=== PATIENT | female | born 1960 | race Hispanic/Latino ===

== ENCOUNTER → 2018-02-08 | Outpatient (CLI) | payer OTHER | END | disposition home or self-care (01) | LOC: RAH 13:52 | PROVIDERS: ATTEND Internal Medicine Cardiovascular Disease | DX: Z13.6 Encounter for screening for cardiovascular disorders (principal) | CPT/HCPCS: 75571 ==

== ENCOUNTER → 2018-07-26 | Outpatient (CLI) | payer OTHER | END | disposition home or self-care (01) | LOC: OIH 13:52 | PROVIDERS: ATTEND Internal Medicine | DX: M17.12 Unilateral primary osteoarthritis, left knee (principal); M47.816 Spondylosis without myelopathy or radiculopathy, lumbar region; M85.88 Other specified disorders of bone density and structure, other site | CPT/HCPCS: 72100; 73560 ==

== ENCOUNTER → 2019-05-04 | Outpatient (CLI) | payer OTHER | END | disposition home or self-care (01) | LOC: OIH 13:05 | PROVIDERS: ATTEND Internal Medicine | DX: S13.9XXA Sprain of joints and ligaments of unspecified parts of neck, initial encounter (principal); X58.XXXA Exposure to other specified factors, initial encounter; Y93.89 Activity, other specified; Y92.89 Other specified places as the place of occurrence of the external cause; Y99.8 Other external cause status | CPT/HCPCS: 72040; 73030 ==

== ENCOUNTER → 2019-10-30 | Outpatient (CLI) | payer OTHER | END | disposition home or self-care (01) | LOC: OIH 10:03 | PROVIDERS: ATTEND Internal Medicine | DX: M25.511 Pain in right shoulder (principal) | CPT/HCPCS: 73030 ==

== ENCOUNTER → 2020-05-13 | Outpatient (CLI) | payer OTHER | END | disposition home or self-care (01) | LOC: OIH 09:58 | PROVIDERS: ATTEND Internal Medicine | DX: M25.542 Pain in joints of left hand (principal) | CPT/HCPCS: 73130 ==

== ENCOUNTER 2021-12-27 14:18 | Emergency (ER) | payer OTHER ==
[~2021-12-27] VITALS: Ht 157.5 cm; Wt 72.6 kg
[2021-12-27 15:54] VITALS: BP 148/82
[2021-12-27 15:57] LABS: BASOPHILS % (AUTO) 0.4 % (0.0-5.0); EOSINOPHILS % (AUTO) 5.5 % (0.0-8.0); LYMPHOCYTES % (AUTO) 26.3 % (21.0-51.0); MEAN CORPUSCULAR HEMOGLOBIN 28.7 pg (27.0-33.0); MEAN CORPUSCULAR HGB CONC 33.6 g/dL (32.0-36.0); MEAN CORPUSCULAR VOLUME 85.5 fL (79-99); MONOCYTES % (AUTO) 8.1 % (3.0-13.0); NEUTROPHILS % (AUTO) 59.4 % (40.0-77.0); PLATELET COUNT (AUTO) 341 K/uL (130-400); RED BLOOD CELL COUNT(AUTO) 4.56 MIL/uL (4.00-5.50); RED CELL DISTRIBUTION WIDTH 12.9 % (11.0-15.5)
[2021-12-27 16:04] LABS: APPEARANCE,URINE CLEAR (CLEAR); BILIRUBIN,URINE NEGATIVE (NEGATIVE); COLOR,URINE LIGHT-YELLOW (YELLOW); GLUCOSE, URINE (UA) NEGATIVE (NEGATIVE); KETONES,URINE NEGATIVE (NEGATIVE); LEUKOCYTE ESTERASE ,URINE 75 Leu/uL (NEGATIVE); NITRATE,URINE NEGATIVE (NEGATIVE); OCCULT BLOOD,URINE NEGATIVE (NEGATIVE); PH,URINE 6.5 (5.0-8.0); PROTEIN,URINE NEGATIVE (NEGATIVE); UROBILINOGEN,URINE 0.2 mg/dL (0.2-1.0)
[2021-12-27 16:07] LABS: CREATININE 0.7 mg/dL (0.5-1.5); POTASSIUM 3.9 mmol/L (3.5-5.1)
[2021-12-27 16:12] LABS: MUCUS,URINE RARE LPF (None Seen); SQUAMOUS EPITHELIAL CELL,UR RARE /HPF (0-2)
[2021-12-27 16:19] LABS: ALBUMIN 3.5 g/dL (3.5-5.0); TOTAL PROTEIN, SERUM 7.5 g/dL (6.0-8.3)
[2021-12-27] MEDS ORDERED: MECLIZINE HCL 25 MG TABLET PO ONE (17:30)
[2021-12-27] MEDS ORDERED: CEFTRIAXONE 1G VIAL IVP ONE (17:30)
[2021-12-27] MEDS ORDERED: MECL-226 PO (18:22)
[2021-12-27] MEDS ORDERED: MACR100 PO (18:22)
== END 2021-12-27 18:32 | disposition home or self-care (01) ==
LOC: EDH 14:18
DX: J30.9 Allergic rhinitis, unspecified (principal); R42 Dizziness and giddiness; N39.0 Urinary tract infection, site not specified; F41.9 Anxiety disorder, unspecified; F32.A Depression, unspecified; E78.00 Pure hypercholesterolemia, unspecified; G47.00 Insomnia, unspecified; Z79.899 Other long term (current) drug therapy; Z88.6 Allergy status to analgesic agent; Z98.890 Other specified postprocedural states
CPT/HCPCS: 99284; 96374; 82550; 83874; 84484; 80053; 85025; 87088; 81001; 36415; 93005; J0696

== ENCOUNTER → 2022-05-26 | Outpatient (CLI) | payer OTHER ==
[~2022-05-26] MED LIST: MACR100 PO; MECL-226 PO
== END | disposition home or self-care (01) ==
LOC: RAH 14:11
PROVIDERS: ATTEND Internal Medicine
DX: S29.012A Strain of muscle and tendon of back wall of thorax, initial encounter (principal); S16.1XXA Strain of muscle, fascia and tendon at neck level, initial encounter; X58.XXXA Exposure to other specified factors, initial encounter; Y93.89 Activity, other specified; Y92.89 Other specified places as the place of occurrence of the external cause; Y99.8 Other external cause status
CPT/HCPCS: 72050; 72070

== ENCOUNTER 2023-01-18 10:45 | Emergency (ER) | payer OTHER ==
[~2023-01-18] VITALS: Ht 157.5 cm; Wt 67.1 kg
[2023-01-18] MEDS ORDERED: BISACODYL 10 MG SUPP.RECT RC ONE ×2 (12:04→12:30)
[2023-01-18 13:10] LABS: BASOPHILS # (AUTO) 0.04 K/uL (0.00-0.20); BASOPHILS % (AUTO) 0.4 % (0.0-5.0); EOSINOPHILS # (AUTO) 0.02 K/uL (0.00-0.70); EOSINOPHILS % (AUTO) 0.2 % (0.0-8.0); HEMATOCRIT 42.5 % (36-48); IMMATURE GRANULOCYTE ABSOLUTE 0.04 K/uL (0-1); LYMPHOCYTES % (AUTO) 18.2 % (21.0-51.0); MEAN CORPUSCULAR HEMOGLOBIN 28.6 pg (27.0-33.0); MEAN CORPUSCULAR HGB CONC 33.9 g/dL (32.0-36.0); MEAN CORPUSCULAR VOLUME 84.5 fL (79-99); MONOCYTES # (AUTO) 0.5 K/uL (0.1-1.0); MONOCYTES % (AUTO) 4.4 % (3.0-13.0); NEUTROPHILS # (AUTO) 8.3 K/uL (1.8-7.7); NEUTROPHILS % (AUTO) 76.4 % (40.0-77.0); PLATELET COUNT (AUTO) 397 K/uL (130-400); RED BLOOD CELL COUNT(AUTO) 5.03 MIL/uL (4.00-5.50); RED CELL DISTRIBUTION WIDTH 12.7 % (11.0-15.5); WHITE BLOOD COUNT (AUTO) 10.8 K/uL (4.8-10.8)
[2023-01-18 13:19] LABS: CREATININE 0.7 mg/dL (0.5-1.5); POTASSIUM 3.9 mmol/L (3.5-5.1)
[2023-01-18 13:24] LABS: ALBUMIN 3.8 g/dL (3.5-5.0); BILIRUBIN,TOTAL 0.5 mg/dL (0.2-1.0); TOTAL PROTEIN, SERUM 8.4 g/dL (6.0-8.3)
[2023-01-18 13:41] VITALS: BP 118/76; PULSE 88; RESP 14; O2SAT 100
[2023-01-18] MEDS ORDERED: SENN1TAB72 PO (14:02)
[2023-01-18] MEDS ORDERED: POLY454P5 MC (14:02)
== END 2023-01-18 14:24 | disposition home or self-care (01) ==
LOC: EDH 10:45
DX: K59.04 Chronic idiopathic constipation (principal); F41.9 Anxiety disorder, unspecified; F32.A Depression, unspecified; E78.00 Pure hypercholesterolemia, unspecified; Z88.5 Allergy status to narcotic agent
CPT/HCPCS: 36415; 74018; 80053; 84484; 85025; 86850; 86900; 86901

== ENCOUNTER 2023-01-27 10:58 | Emergency (ER) | payer OTHER ==
[~2023-01-27] VITALS: Ht 157.5 cm; Wt 66.7 kg
[~2023-01-27 10:58] MED LIST changes: +POLY454P5 MC; +SENN1TAB72 PO
[2023-01-27] MEDS ORDERED: ACETAMINOPHEN WITH CODEINE 1 TAB TAB PO ONE (12:00)
[2023-01-27] MEDS ORDERED: IBUP-2070 PO (13:04)
[2023-01-27 13:22] VITALS: BP 133/78; PULSE 78; RESP 18; O2SAT 98
== END 2023-01-27 14:00 | disposition home or self-care (01) ==
LOC: EDH 10:58
DX: S20.211A Contusion of right front wall of thorax, initial encounter (principal); E78.00 Pure hypercholesterolemia, unspecified; F41.9 Anxiety disorder, unspecified; F32.A Depression, unspecified; Z90.49 Acquired absence of other specified parts of digestive tract; Z88.5 Allergy status to narcotic agent; X58.XXXA Exposure to other specified factors, initial encounter; Y93.89 Activity, other specified; Y92.89 Other specified places as the place of occurrence of the external cause; Y99.8 Other external cause status
CPT/HCPCS: 71101

== ENCOUNTER 2023-11-29 15:42 | Emergency (ER) | payer OTHER ==
[~2023-11-29] VITALS: Ht 162.6 cm; Wt 63.5 kg
[~2023-11-29 15:42] MED LIST changes: +IBUP-2070 PO; +SENN-7 PO; -SENN1TAB72 PO
[2023-11-29 16:15] LABS: BASOPHILS # (AUTO) 0.02 K/uL (0.00-0.20); BASOPHILS % (AUTO) 0.3 % (0.0-5.0); EOSINOPHILS # (AUTO) 0.11 K/uL (0.00-0.70); EOSINOPHILS % (AUTO) 1.6 % (0.0-8.0); HEMATOCRIT 39.6 % (36-48); IMMATURE GRANULOCYTE ABSOLUTE 0.01 K/uL (0-1); LYMPHOCYTES # (AUTO) 2.5 K/uL (1.0-4.8); LYMPHOCYTES % (AUTO) 35.8 % (21.0-51.0); MEAN CORPUSCULAR HEMOGLOBIN 28.9 pg (27.0-33.0); MEAN CORPUSCULAR HGB CONC 33.6 g/dL (32.0-36.0); MEAN CORPUSCULAR VOLUME 86.1 fL (79-99); MONOCYTES # (AUTO) 0.5 K/uL (0.1-1.0); MONOCYTES % (AUTO) 7.6 % (3.0-13.0); NEUTROPHILS # (AUTO) 3.8 K/uL (1.8-7.7); NEUTROPHILS % (AUTO) 54.6 % (40.0-77.0); PLATELET COUNT (AUTO) 360 K/uL (130-400); RED CELL DISTRIBUTION WIDTH 12.8 % (11.0-15.5)
[2023-11-29 16:23] LABS: CREATININE 0.8 mg/dL (0.5-1.0); POTASSIUM 3.7 mmol/L (3.5-5.1)
[2023-11-29 16:43] LABS: B-TYPE NATRIURETIC PEPTIDE 24 pg/mL (0-100)
[2023-11-29] MEDS: acetaMINOPHEN 500 MG TABLET PO ONE (18:08)
[2023-11-29 19:14] VITALS: BP 142/81; PULSE 84; RESP 18; TEMP 98.1; O2SAT 98
== END 2023-11-29 19:15 | disposition home or self-care (01) ==
LOC: EDH 15:42
DX: R07.89 Other chest pain (principal); E78.00 Pure hypercholesterolemia, unspecified; I10 Essential (primary) hypertension; F41.9 Anxiety disorder, unspecified; Z88.5 Allergy status to narcotic agent; Z90.710 Acquired absence of both cervix and uterus
CPT/HCPCS: 36415; 71045; 80048; 82550; 83880; 84484; 85025; 93005

== ENCOUNTER 2024-03-17 18:02 | Emergency (ER) | payer OTHER ==
[~2024-03-17] VITALS: Ht 157.5 cm; Wt 65.8 kg
[2024-03-17 18:12] VITALS: TEMP 98.1
--- NOTE | 2024-03-17 18:17 | ERN ---
General Chief Complaint: Chest Pain Stated Complaint: CP Time Seen by MD: 18:06 Time Seen by Midlevel: 18:06 Source: patient History of Present Illness Initial Comments Patient is a 63-year-old female with a past medical history of anxiety, depression, and insomnia on Ativan presenting to the emergency department with chest pain and shortness of Breath that has been ongoing for the last couple of days but worsened today. Denies any other symptoms at this time. She does report feeling slightly better after taking her Ativan but still decided to report to the ER for further evaluation. Allergies: Coded Allergies: morphine (Unverified Allergy, Unknown, 12/27/21) Home Meds Active Scripts Ibuprofen (Ibuprofen) 600 Mg Tablet, 600 MG PO q8 hoursPRN PRN for PAIN, #12 TAB 0 Refills Prov:LACEY QUESADA NP 01/27/23 Polyethylene Glycol 1000 (Polyethylene Glycol) 500 Gm Powder, 500 GM MC DAILY, #15 APPL Prov:CECE HEWITT MD 01/18/23 Sennosides/Docusate Sodium (Senna-Docusate Sodium Tablet) 8.6 Mg-50 Mg Tablet, 1 EACH PO DAILY, #30 TAB Prov:CECE HEWITT MD 01/18/23 Nitrofurantoin/Nitrofuran Mac (Macrobid) 100 Mg Cap, 1 CAP PO BID for uti for 7 Days, #14 CAP 0 Refills Prov:JULIUS TRIPP 12/27/21 Meclizine HCl (Meclizine HCl) 12.5 Mg Tablet, 12.5 MG PO QID for DIZZINESS for 30 Days, #30 TAB Prov:JULIUS TRIPP 12/27/21 Past Medical History Past Medical History: Anxiety, Other Medical History Other: INSOMNIA Past Surgical History: Hysterectomy Social History Social History: Negative Female( History) History: Not Applicable ROS Dictation CONSTITUTIONAL: Negative except for HPI HEAD/FACE: Negative except for HPI EENT: Negative except for HPI RESPIRATORY: Negative except for HPI GASTROINTESTINAL/ABDOMINAL: Negative except for HPI GENITOURINARY: Negative except for HPI MUSCULOSKELETAL: Negative except for HPI INTEGUMENTARY: Negative except for HPI NEUROLOGICAL/PSYCH: Negative except for HPI HEMATOLOGIC/LYMPHATIC: Negative except for HPI All Systems Negative, Except as noted above. 13 point review of systems assessed and all negative except for above. Physical Exam Physical Exam Dictation Vital Signs reviewed General Appearance: Alert, oriented x 3, no acute distress, well developed, nourished. Head and Face: non-traumatic. Eyes: PERRL, pink conjunctivas, eyelid no trauma, anterior chamber with arcus senilis. Ears: Pinnas intact and no signs of trauma or erythema ear canals clear and no discharge TM no erythema Nose: No discharge, no bleeding. Oropharynx: Mouth normal, tongue pink, pharynx clear,no erythema, tonsils no exudates, no abscesses noted, mucous membrane moist Neck: Supple, non-tender, no thyromegaly, no masses, no JVD, no bruits Breast:Deferred Chest:No tenderness, no crepitus, no paradoxical movement, no retractions Lungs:Clear, well-ventilated, symmetric, no rales, no wheezing, no rhonchi, no stridor, good breath sounds bilaterally Heart: Regular rate, regular rhythm, no murmur, no gallops Vascular: no peripheral edema, Abdomen: Soft, positive bowel sounds, nondistended, no guarding, nontender, no rebound, no masses no hepatomegaly, no splenomegaly, no Brooks's sign, no hernias. Rectal: Deferred Genital: Deferred Neurological: Normal speech, motor function intact, sensory function intact Musculoskeletal: Neck nontender, full range of motion, back nontender, full range of motion, Extremities: nontender, full range of motion Skin: Color pink, dry, no turgor, no rash, no lacerations, no abrasions, no contusions. Lymphatic: Deferred Results Laboratory and Microbiology Lab and Micro Result Laboratory Tests Test 03/17/24 18:19 White Blood Count 8.8 K/uL (4.8-10.8) Red Blood Count 4.46 MIL/uL (4.00-5.50) Hemoglobin 13.1 g/dL (12.0-16.0) Hematocrit 38.7 % (36-48) Mean Corpuscular Volume 86.8 fL (79-99) Mean Corpuscular Hemoglobin 29.4 pg (27.0-33.0) Mean Corpuscular Hemoglobin Concent 33.9 g/dL (32.0-36.0) Red Cell Distribution Width 13.3 % (11.0-15.5) Platelet Count 348 K/uL (130-400) Mean Platelet Volume 8.9 fL (7.5-10.5) Immature Granulocyte % (Auto) 0.2 % (0-1) Neutrophils (%) (Auto) 60.7 % (40.0-77.0) Lymphocytes (%) (Auto) 31.5 % (21.0-51.0) Monocytes (%) (Auto) 4.9 % (3.0-13.0) Eosinophils (%) (Auto) 2.2 % (0.0-8.0) Basophils (%) (Auto) 0.5 % (0.0-5.0) Neutrophils # (Auto) 5.3 K/uL (1.8-7.7) Lymphocytes # (Auto) 2.8 K/uL (1.0-4.8) Monocytes # (Auto) 0.4 K/uL (0.1-1.0) Eosinophils # (Auto) 0.19 K/uL (0.00-0.70) Basophils # (Auto) 0.04 K/uL (0.00-0.20) Absolute Immature Granulocyte (auto 0.02 K/uL (0-1) Nucleated Red Blood Cells 0.0 % (0.0-0.19) Sodium Level 141 mmol/L (136-145) Potassium Level 4.2 mmol/L (3.5-5.1) Chloride Level 104 mmol/L (101-111) Carbon Dioxide Level 30 mmol/L (21-32) Blood Urea Nitrogen 16 mg/dL (7-18) Creatinine 0.7 mg/dL (0.5-1.0) Glomerular Filtration Rate Calc 97 mL/min (>90) Random Glucose 154 mg/dL (70-105) H Total Calcium 8.8 mg/dL (8.5-10.1) Magnesium Level 2.00 mg/dL (1.80-2.40) Total Creatine Kinase 38 U/L (21-232) # Troponin I High Sensitivity < 4 ng/L (4-50) L B-Type Natriuretic Peptide 8 pg/mL (0-100) Labs Reviewed?: Yes EKG/XRAY/US/CT/MRI EKG Comment Date: March 17, 2024 Time: 6:10 p.m. Ventricular rate: 79 beats per minute TX interval: 163 QRS duration: 81 QT/QTc: 376/430 EKG interpretation: Normal sinus rhythm with a ventricular rate of 79 beats per minute, no bundle branch blocks, no ST elevations Reviewed by ED Attending MDM MDM: Patient is a 63-year-old female with a past medical history of anxiety, depression, and insomnia on Ativan presenting to the emergency department with chest pain and shortness of Breath that has been ongoing for the last couple of days but worsened today. Denies any other symptoms at this time. She does report feeling slightly better after taking her Ativan but still decided to report to the ER for further evaluation. On arrival patient reports feeling short of breath however initial vital signs are remarkable for a temperature of 98.1. Heart rate is 88 beats per minute. Respiratory rate is 18 breaths per minute. Blood pressure 151/82. O2 saturation is 98% on room air. Patient is in no acute respiratory distress. CBC and chemistries unremarkable. EKG shows normal sinus rhythm with a ventricular rate of 79 beats per minute. There was no bundle branch blocks or ST elevations. Cardiac enzymes are negative. Chest x-ray does not show any acute abnormality. I do believe there is a component of anxiety however the patient has an appointment scheduled with a good [facility] vendor for a full cardiac workup. Patient had Holter monitor removed several days ago and will be receiving her results later this month. The next step is an echocardiogram that will be performed by good [facility] vendor outpatient. I did offer admission for further observation and management but patient would like to go home. She states she will return to the ER if she develops any new or worsening symptoms. I believe this is appropriate at this time given her low heart score and unremarkable blood work. She was chest pain-free at this time and her repeat vital signs are unremarkable. Differential diagnosis: ACS, pneumonia, pulmonary edema, anxiety There are no social concerns with this patient. Prescription drug management Prescriptions will include: None Medical management and examination interpretation discussions were had by me with other qualified healthcare professionals as indicated for the patient's care. ED Course Orders Procedure Category Date Status Time 12 Lead Ekg Tracing- EKG 03/17/24 Complete Technical 18:11 B-Type Natriuretic LAB 03/17/24 Complete Peptide 18:11 Cbc With Differential LAB 03/17/24 Complete 18:11 Basic Metabolic Panel LAB 03/17/24 Complete 18:11 Creatine Kinase, Total LAB 03/17/24 Complete 18:11 Magnesium LAB 03/17/24 Complete 18:11 Troponin I High LAB 03/17/24 Complete Sensitivity 18:11 Urinalysis Profile LAB 03/17/24 Logged 18:11 Chest 1vw RAD 03/17/24 Resulted 18:11 Vital Signs Date Time Temp Pulse Resp B/P (MAP) Pulse Ox O2 Delivery O2 Flow Rate FiO2 03/17/24 19:53 65 13 112/68 98 Room Air* 0 21 03/17/24 18:12 98.1 88 18 151/82 98 Room Air* 0 21 03/17/24 18:07 98.1 88 18 151/82 98 Room Air 0 [facility] [address] [place] [address] IMAGING REPORT Signed PATIENT: MARISOL ANDERSON MR#: [id number] : 1960 SEX: F AGE: 63 LOCATION: [facility] ORDER 11 STATUS: REG REPORT#: [id number] SERVICE 10 REASON: sob ORDERING PHYSICIAN: CHRIS HOLLIDAY PROCEDURE: CXR1VW - CHEST 1VW CHEST 1VW CLINICAL HISTORY: sob COMPARISON: 11/29/2023 TECHNIQUE: Single view of the chest was obtained. FINDINGS: Lungs are clear. The cardiac size and mediastinum are unremarkable. The bony structures are within normal limits. IMPRESSION: No acute cardiopulmonary process identified. DICTATED BY: SANJIV BRODY DO DATE: 03/17/242015 ELECTRONICALLY SIGNED BY: SANJIV BRODY DO DATE: 03/17/24 2019 HEART Score Response (Comments) Value History: Low suspicion (0) 0 EKG: Normal 0 Age: 45-65yrs (+1) 1 Risk Factors: 1-2 risk factors (+1) 1 Initial Troponin: Normal limit (0) 0 HEART Score Risk: Low Risk for MACE (1-3) Total 2 DX & DISP Disposition: Discharge Departure Impression: Primary Impression: Non-cardiac chest pain Condition: Stable Additional Instructions: Your blood work today is unremarkable. Your cardiac enzymes are negative. Your EKG does not show any evidence of a heart attack. Your chest x-ray does not show any evidence of pneumonia or any other acute abnormalities. Please keep your appointment with [facility] vendor for outpatient evaluation. Follow up with your psychiatrist Dr. Mix for possible medication adjustment as your symptoms may be caused by the Ativan that you are taking. If you develop any new or worsening symptoms please report to the ER for further evaluation. Referrals: ORION VARGAS MD (PCP) Time of Disposition: 20:47 I have reviewed the case, and I agree with, Diagnosis and Plan I performed the substantive portion of the visit. I have reviewed and personally made and approve the management plan that is documented in the note by myself or the BRE. I acknowledge for responsibility for the patient's manag ement plan. CHRIS HOLLIDAY Mar 17, 2024 18:17
[2024-03-17 18:26] LABS: BASOPHILS # (AUTO) 0.04 K/uL (0.00-0.20); BASOPHILS % (AUTO) 0.5 % (0.0-5.0); EOSINOPHILS # (AUTO) 0.19 K/uL (0.00-0.70); EOSINOPHILS % (AUTO) 2.2 % (0.0-8.0); HEMATOCRIT 38.7 % (36-48); IMMATURE GRANULOCYTE ABSOLUTE 0.02 K/uL (0-1); LYMPHOCYTES # (AUTO) 2.8 K/uL (1.0-4.8); LYMPHOCYTES % (AUTO) 31.5 % (21.0-51.0); MEAN CORPUSCULAR HEMOGLOBIN 29.4 pg (27.0-33.0); MEAN CORPUSCULAR HGB CONC 33.9 g/dL (32.0-36.0); MEAN CORPUSCULAR VOLUME 86.8 fL (79-99); MONOCYTES # (AUTO) 0.4 K/uL (0.1-1.0); MONOCYTES % (AUTO) 4.9 % (3.0-13.0); NEUTROPHILS # (AUTO) 5.3 K/uL (1.8-7.7); NEUTROPHILS % (AUTO) 60.7 % (40.0-77.0); PLATELET COUNT (AUTO) 348 K/uL (130-400); RED BLOOD CELL COUNT(AUTO) 4.46 MIL/uL (4.00-5.50); RED CELL DISTRIBUTION WIDTH 13.3 % (11.0-15.5); WHITE BLOOD COUNT (AUTO) 8.8 K/uL (4.8-10.8)
[2024-03-17 18:33] LABS: CREATININE 0.7 mg/dL (0.5-1.0); POTASSIUM 4.2 mmol/L (3.5-5.1)
[2024-03-17 18:57] LABS: B-TYPE NATRIURETIC PEPTIDE 8 pg/mL (0-100)
--- NOTE | 2024-03-17 19:05 | EKG ---
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
--- NOTE | 2024-03-17 19:14 | NUR ---
PT CARE ASSUMED AT THIS TIME
--- NOTE | 2024-03-17 20:19 | HMCIMG ---
CHEST 1VW CLINICAL HISTORY: sob COMPARISON: 11/29/2023 TECHNIQUE: Single view of the chest was obtained. FINDINGS: Lungs are clear. The cardiac size and mediastinum are unremarkable. The bony structures are within normal limits. IMPRESSION: No acute cardiopulmonary process identified.
[2024-03-17 21:06] VITALS: BP 138/81; PULSE 64; RESP 11; O2SAT 96
== END 2024-03-17 21:19 | disposition home or self-care (01) ==
LOC: EDH 18:02
DX: R07.89 Other chest pain (principal); F41.9 Anxiety disorder, unspecified; Z88.5 Allergy status to narcotic agent; Z90.710 Acquired absence of both cervix and uterus
CPT/HCPCS: 36415; 71045; 80048; 82550; 83735; 83880; 84484; 85025; 93005; 99285

== ENCOUNTER 2024-04-07 04:45 | Emergency (ER) | payer OTHER ==
[~2024-04-07] VITALS: Ht 157.5 cm; Wt 66.2 kg
[2024-04-07 05:04] VITALS: TEMP 98
--- NOTE | 2024-04-07 05:11 | ERN ---
ED Note History of Present Illness Stated Complaint: CHEST PAIN, HTN Chief Complaint: Multiple Complaints Time Seen by MD: 04:52 Dictation: This is a 63-year-old female who presented to the emergency room with complaints of palpitations. She stated that she had a cold with chest congestion and took cough syrup [id number] before going to bed. She woke up and experienced a heaviness in the back of the head which she usually does when her blood pressure goes up. Checked her blood pressure which was in the 150 systolic and there was a 3rd number on her blood pressure machine which was 134 and she was concerned and came to the ER for further evaluation. She takes sertraline in the morning and quetiapine at night for sleep. And she also takes 3 to 4 times a week Ativa n as needed for anxiety. She took an Ativan pill prior to come into the ER. She denied any chest pain or chest discomfort of any sort during my evaluation. She does complain of dry mouth Temperature 97.8 pulse 102 respirations 20 blood pressure 155/80 with a pulse oximetry of 99% on room air Her chronic medical problems include anxiety depression and hypertension she also suffers from chronic insomnia. She had similar presentation in the past and the workup was essentially negative Allergies: Coded Allergies: morphine (Unverified Allergy, Unknown, 12/27/21) Home Meds Active Scripts Ibuprofen (Ibuprofen) 600 Mg Tablet, 600 MG PO q8 hoursPRN PRN for PAIN, #12 TAB 0 Refills Prov:LACEY QUESADA NP 01/27/23 Polyethylene Glycol 1000 (Polyethylene Glycol) 500 Gm Powder, 500 GM MC DAILY, #15 APPL Prov:CECE HEWITT MD 01/18/23 Sennosides/Docusate Sodium (Senna-Docusate Sodium Tablet) 8.6 Mg-50 Mg Tablet, 1 EACH PO DAILY, #30 TAB Prov:CECE HEWITT MD 01/18/23 Nitrofurantoin/Nitrofuran Mac (Macrobid) 100 Mg Cap, 1 CAP PO BID for uti for 7 Days, #14 CAP 0 Refills Prov:JULIUS TRIPP 12/27/21 Meclizine HCl (Meclizine HCl) 12.5 Mg Tablet, 12.5 MG PO QID for DIZZINESS for 30 Days, #30 TAB Prov:JULIUS TRIPP 10/29/22 Past Medical History Past Medical History: Anxiety, Hypertension, Other Additional Past Medical Hx: INSOMNIA Surgical History: Hysterectomy Social History: Negative History: Not Applicable RN Note Reviewed/Agreed w/PFSH: Yes Review of System Dictation Constitutional: Negative for fever,chills, and weight loss Eyes: Negative for injury, pain,redness, and discharge ENT: Negative for injury,pain or swelling Cardiovascular: Negative for chest pain, positive palpitations, Respiratory: Negative for shortness of breath, cough, and wheezing, Abdomen/GI: Negative for abdominal pain, nausea, vomiting, diarrhea, and constipation Back: Negative for injury and pain : Negative for injury, bleeding and discharge MS/Extremity: Negative for injury and deformity Skin: Negative for rash, and discoloration Neuro: Negative for headache, weakness, numbness, tingling, and seizure Psych: Negative for suicide ideation, homicidal ideation, and hallucinations Initial Vital Sign VS Vital Signs Date Time Temp Pulse Resp B/P (MAP) Pulse Ox O2 Delivery O2 Flow Rate FiO2 04/07/24 04:47 97.9 102 20 155/80 100 Room Air 04/07/24 05:04 0 21 Physical Exam Dictation General: awake, alert, NAD generally anxious Head/Face: Normocephalic, atraumatic Eyes: PERRL, EOMI, vision at baseline ENT: oral cavity clear, TMs clear, no signs of infection Neck: Trachea midline, supple, no nuchal rigidity Cardiovascular: RRR, normal S1/S2, No MRGs, no JVD Respiratory: CTAB, no respiratory distress, No rales or wheezes Abdomen: Soft, non-tender, non-distended, normal bowel sounds, no guarding or rebound. Skin: Warm, dry, normal turgor, no rash MS/Extremity: Pulses equal, no cyanosis, neurovascular intact, FROM Neuro: COAx4, GCS 15, strength 5/5, CN 2-12 intact, normal cerebellar exam, normal gait, Psych: Normal behavior, mood, and affect normal Extremities-trace edema without any palpable cords, Homans sign is negative Results (Laboratory/Radiology) Laboratory/Radiology Laboratory Tests Test 04/07/24 05:45 04/07/24 05:47 Urine Color COLORLESS (YELLOW) Urine Appearance CLEAR (CLEAR) Urine pH 5.5 (5.0-8.0) Urine Specific [place] 1.006 (1.001-1.031) Urine Protein NEGATIVE mg/dL (NEGATIVE) Urine Glucose (UA) NEGATIVE mg/dL (NEGATIVE) Urine Ketones NEGATIVE mg/dL (NEGATIVE) Urine Occult Blood NEGATIVE (NEGATIVE) Urine Nitrate NEGATIVE (NEGATIVE) Urine Bilirubin NEGATIVE mg/dL (NEGATIVE) Urine Urobilinogen 0.2 mg/dL (0.2-1.0) Urine Leukocyte Esterase 25 Kiersten/uL (NEGATIVE) H Urine RBC 0-1 /HPF (0-1) Urine WBC 0-1 /HPF (0-1) Urine Squamous Epithelial Cells RARE /HPF (0-2) Urine Bacteria None /HPF (None Seen) White Blood Count 7.2 K/uL (4.8-10.8) Red Blood Count 4.42 MIL/uL (4.00-5.50) Hemoglobin 12.8 g/dL (12.0-16.0) Hematocrit 38.3 % (36-48) Mean Corpuscular Volume 86.7 fL (79-99) Mean Corpuscular Hemoglobin 29.0 pg (27.0-33.0) Mean Corpuscular Hemoglobin Concent 33.4 g/dL (32.0-36.0) Red Cell Distribution Width 13.1 % (11.0-15.5) Platelet Count 327 K/uL (130-400) Mean Platelet Volume 9.0 fL (7.5-10.5) Immature Granulocyte % (Auto) 0.3 % (0-1) Neutrophils (%) (Auto) 65.3 % (40.0-77.0) Lymphocytes (%) (Auto) 23.3 % (21.0-51.0) Monocytes (%) (Auto) 7.5 % (3.0-13.0) Eosinophils (%) (Auto) 3.2 % (0.0-8.0) Basophils (%) (Auto) 0.4 % (0.0-5.0) Neutrophils # (Auto) 4.7 K/uL (1.8-7.7) Lymphocytes # (Auto) 1.7 K/uL (1.0-4.8) Monocytes # (Auto) 0.5 K/uL (0.1-1.0) Eosinophils # (Auto) 0.23 K/uL (0.00-0.70) Basophils # (Auto) 0.03 K/uL (0.00-0.20) Absolute Immature Granulocyte (auto 0.02 K/uL (0-1) Nucleated Red Blood Cells 0.0 % (0.0-0.19) Sodium Level 141 mmol/L (136-145) Potassium Level 3.7 mmol/L (3.5-5.1) Chloride Level 106 mmol/L (101-111) Carbon Dioxide Level 30 mmol/L (21-32) Blood Urea Nitrogen 13 mg/dL (7-18) Creatinine 0.6 mg/dL (0.5-1.0) Glomerular Filtration Rate Calc 101 mL/min (>90) Random Glucose 106 mg/dL (70-105) H Total Calcium 8.8 mg/dL (8.5-10.1) Labs Reviewed?: Yes EKG Comment: Twelve lead EKG done on 04/07/2024 at 4:59 a.m. showed a heart rate of 75, WI interval 194, QRS 86, QT/QTC is 386/432 Normal sinus rhythm with intermittent sinus arrhythmia. Overall somewhat of a low voltage and poor progression of the R-waves. Nonspecific ST-T changes but no acute ST elevations noted Interpreted by Dr. Eisenberg ED Course ED Course Orders Procedure Category Date Status Time 12 Lead Ekg Tracing- EKG 04/07/24 Complete Technical 05:04 Cbc With Differential LAB 04/07/24 Complete 05:42 Basic Metabolic Panel LAB 04/07/24 Complete 05:42 Urinalysis Profile LAB 04/07/24 Complete 05:42 Vital Signs Date Time Temp Pulse Resp B/P (MAP) Pulse Ox O2 Delivery O2 Flow Rate FiO2 04/07/24 06:33 64 14 112/65 95 Room Air* 0 21 04/07/24 05:04 98.1 95 16 153/90 97 Room Air* 0 21 04/07/24 04:47 97.9 102 20 155/80 100 Room Air We will perform diagnostic labs, and administer medications according to the patient's complaint. Once the results are available, will review and personally interpreted the labs to rule out any acute life-threatening emergency the trach require immediate intervention and treatment. I will then re-evaluate the patient after treatment and diagnostic exams have return to determine whether the patient requires any further testing, can safely be discharged home or need further admission to hospital for additional treatment and evaluation. Labs reviewed CBC is with a normal limits. Urinalysis had mild leuko esterase positivity but no WBCs noted. BNP 7 is pending 6:56 a.m. BNP 7 is completely normal I updated the patient about the labs and likely her symptoms were related to multiple medications and the cough syrup interacting. She feels a whole lot better. Discharge to home to follow up with her PCP HEART Score Response (Comments) Value History: Low suspicion (0) 0 EKG: Normal 0 Age: 45-65yrs (+1) 1 Risk Factors: 1-2 risk factors (+1) 1 Initial Troponin: Normal limit (0) 0 HEART Score Risk: Low Risk for MACE (1-3) Total 2 Medical Decision Making MDM MDM: Differential diagnosis: Palpitations likely triggered by the nasal decongestant and cough syrup, anxiety, drug interactions Rationale: Tests considered and ordered secondary to shared decision making include: Previous outside records reviewed: Old ER visits. Risk of complication and/or morbidity or mortality of patient management: None Medications-Per medication reconciliation Need for hospitalization: Patient does not meet criteria for hospitalization. Need for emergency major/minor surgery: No There are no social concerns with this patient. Prescription drug management Prescriptions will include symptomatic care Patient's prior external medical records from other ER visits were reviewed by me as indicated. Prior testing and results from previous visits were reviewed. Prior tests were taken into account with medical decision making and resource utilization, independent historian/historians were used to obtain complete medical history. I independently interpreted the test that were performed, results were reviewed by me and considered findings on radiology if ordered. Medical management and examination interpretation discussions were had by me with other qualified healthcare professionals as indicated for the patient's care. Problem List Problem List: (1) Non-cardiac chest pain (2) Severe anxiety (3) Palpitations (4) Uncontrolled hypertension DX & DISP Disposition: Discharge Departure Impression: Primary Impression: Non-cardiac chest pain Additional Impressions: Chest pain, atypical, Severe anxiety, Palpitations, Uncontrolled hypertension Condition: Stable Additional Instructions: Patient and the caregiver have been informed of all the diagnostic tests and the imaging conducted during the today's visit to the emergency room and has verbalized understanding of the results I have personally reviewed and interpreted all diagnostic exams performed here in the ER today as well as the vital signs documented by the nursing staff. The patient is now being discharged to home and should follow up with the primary care physician or the specialist as directed by the ER staff. Follow-up with primary care provider in 1 to 2 days. Take medications as directed here in the emergency room. Okay to continue home medications unless otherwise discussed during your visit in the emergency room today. Return to your nearest emergency room if symptoms worsen or if there is no improvement. Call 911 if you need immediate assistance. Take Tylenol or Motrin [id number] as needed and if no contraindications are present. Increase oral hydration. A wound culture or urine culture was ordered here in the emergency room department please follow-up with primary care provider and advise them to get repeat ports from our facility. If you had any Maximiliano wrap/splints that were applied here, please do not remove them until you see your primary care or specialty. Referrals: ORION VARGAS MD (PCP) ASHANTI EISENBERG MD Apr 07, 2024 05:11
[2024-04-07 05:55] LABS: BASOPHILS # (AUTO) 0.03 K/uL (0.00-0.20); BASOPHILS % (AUTO) 0.4 % (0.0-5.0); EOSINOPHILS # (AUTO) 0.23 K/uL (0.00-0.70); EOSINOPHILS % (AUTO) 3.2 % (0.0-8.0); HEMATOCRIT 38.3 % (36-48); IMMATURE GRANULOCYTE ABSOLUTE 0.02 K/uL (0-1); LYMPHOCYTES # (AUTO) 1.7 K/uL (1.0-4.8); LYMPHOCYTES % (AUTO) 23.3 % (21.0-51.0); MEAN CORPUSCULAR HGB CONC 33.4 g/dL (32.0-36.0); MEAN CORPUSCULAR VOLUME 86.7 fL (79-99); MONOCYTES # (AUTO) 0.5 K/uL (0.1-1.0); MONOCYTES % (AUTO) 7.5 % (3.0-13.0); NEUTROPHILS # (AUTO) 4.7 K/uL (1.8-7.7); NEUTROPHILS % (AUTO) 65.3 % (40.0-77.0); PLATELET COUNT (AUTO) 327 K/uL (130-400); RED BLOOD CELL COUNT(AUTO) 4.42 MIL/uL (4.00-5.50); RED CELL DISTRIBUTION WIDTH 13.1 % (11.0-15.5); WHITE BLOOD COUNT (AUTO) 7.2 K/uL (4.8-10.8)
[2024-04-07 05:57] LABS: APPEARANCE,URINE CLEAR (CLEAR); BILIRUBIN,URINE NEGATIVE (NEGATIVE); COLOR,URINE COLORLESS (YELLOW); GLUCOSE, URINE (UA) NEGATIVE (NEGATIVE); KETONES,URINE NEGATIVE (NEGATIVE); LEUKOCYTE ESTERASE ,URINE 25 Leu/uL (NEGATIVE); NITRATE,URINE NEGATIVE (NEGATIVE); OCCULT BLOOD,URINE NEGATIVE (NEGATIVE); PH,URINE 5.5 (5.0-8.0); PROTEIN,URINE NEGATIVE (NEGATIVE); UROBILINOGEN,URINE 0.2 mg/dL (0.2-1.0)
[2024-04-07 06:01] LABS: ADD UA MICROSCOPIC YES
[2024-04-07 06:03] LABS: MUCUS,URINE RARE LPF (None Seen); RBC,URINE 0-1 /HPF (0-1); SQUAMOUS EPITHELIAL CELL,UR RARE /HPF (0-2); WBC,URINE 0-1 /HPF (0-1)
--- NOTE | 2024-04-07 06:14 | EKG ---
[facility] Test Date: 2024-04-07 Test Time: 04:59:53 Pat Name: MARISOL ANDERSON Department: ED Room: Gender: F Program Director Air Talent: [phone] : 1960 Requested By: ASHANTI COLON Order Number: [id number] Reading MD: Kenny Jefferson Measurements Intervals [place] Rate: 75 P: 52 PA: 194 QRS: -10 QRSD: 86 T: 45 QT: 386 QTc: 432 Interpretive Statements Sinus arrhythmia Compared to ECG 03/17/2024 18:10:06 Sinus rhythm no longer present Electronically Signed On 04-07-2024 17:39:58 ENVIRONMENTAL COMPLIANCE MANAGER by Kenny Jefferson Please click the below link to view image of tracing.
[2024-04-07 06:27] LABS: CREATININE 0.6 mg/dL (0.5-1.0); POTASSIUM 3.7 mmol/L (3.5-5.1)
[2024-04-07 06:33] VITALS: BP 112/65; PULSE 64; RESP 14; O2SAT 95
== END 2024-04-07 07:03 | disposition home or self-care (01) ==
LOC: EDH 04:45
DX: R07.89 Other chest pain (principal); R00.2 Palpitations; F41.9 Anxiety disorder, unspecified; I10 Essential (primary) hypertension; Z79.899 Other long term (current) drug therapy; Z88.5 Allergy status to narcotic agent; Z90.710 Acquired absence of both cervix and uterus
CPT/HCPCS: 36415; 80048; 81001; 85025; 93005; 99284

== ENCOUNTER → 2024-04-11 | Outpatient (CLI) | payer OTHER, SELFPAY ==
--- NOTE | 2024-04-11 13:20 | HMCIMG ---
CT HEART SAVER PROMOTIONAL HISTORY: Calcium scoring COMPARISON: None TECHNIQUE: Computed tomography of the heart was performed with ECG gating and suspended respiration. Postprocessing was performed on a computer workstation to obtain diastolic phase images, determine calcium score and provide a quantitative assessment of extent of disease. This CT included only the heart. HeartSaver score is 74.7. Please see cardiac calcium score report. The available CT chest images show no acute finding. CT was performed with one or more following dose reduction techniques: automated exposure control, adjustment of the mA and kv according to patient's size, or use of a iterative reconstruction technique.
== END ==
LOC: RAH 13:00
PROVIDERS: ATTEND Internal Medicine Cardiovascular Disease
DX: Z13.6 Encounter for screening for cardiovascular disorders (principal)
CPT/HCPCS: 75571

== ENCOUNTER 2024-04-25 06:20 | Emergency (ER) | payer OTHER ==
[~2024-04-25] VITALS: Ht 157.5 cm; Wt 66.7 kg
--- NOTE | 2024-04-25 06:30 | ERN ---
General Chief Complaint: Chest Pain Stated Complaint: CHEST PAIN Time Seen by MD: 06:22 Source: patient History of Present Illness Initial Comments 63-year-old female coming in to be evaluated for chest pressure. Per patient she felt her heart racing felt chest pressure since decided to come in to be evaluated. She also states that she took her blood pressure medication and she took her Valium as well. She states he is still having some discomfort to wants to be evaluated. Allergies: Coded Allergies: morphine (Unverified Allergy, Unknown, 12/27/21) Home Meds Active Scripts Ibuprofen (Ibuprofen) 600 Mg Tablet, 600 MG PO q8 hoursPRN PRN for PAIN, #12 TAB 0 Refills Prov:LACEY QUESADA NP 01/27/23 Polyethylene Glycol 1000 (Polyethylene Glycol) 500 Gm Powder, 500 GM MC DAILY, #15 APPL Prov:CECE HEWITT MD 01/18/23 Sennosides/Docusate Sodium (Senna-Docusate Sodium Tablet) 8.6 Mg-50 Mg Tablet, 1 EACH PO DAILY, #30 TAB Prov:CECE HEWITT MD 01/18/23 Nitrofurantoin/Nitrofuran Mac (Macrobid) 100 Mg Cap, 1 CAP PO BID for uti for 7 Days, #14 CAP 0 Refills Prov:JULIUS TRIPP 12/27/21 Meclizine HCl (Meclizine HCl) 12.5 Mg Tablet, 12.5 MG PO QID for DIZZINESS for 30 Days, #30 TAB Prov:JULIUS TRIPP 12/27/21 Past Medical History Past Medical History: Anxiety, Depression, Hypertension, Other Medical History Other: INSOMNIA Past Surgical History: Hysterectomy Social History Social History: Negative Female( History) History: Not Applicable ROS Dictation CONSTITUTIONAL: No chills, no fever, no weakness, no diaphoresis, no malaise. HEAD/FACE: No signs of trauma. EENT: No eye pain, no blurred vision, no tearing, no double vision, no ear pain, no ear discharge, no nose pain, no nasal congestion, no throat pain, no throat swelling, no mouth pain. RESPIRATORY: No cough, no orthopnea, no SOB, no stridor, no wheezing. CARDIOVASCULAR: No chest pain, no edema, no palpitations, no syncope. GASTROINTESTINAL/ABDOMINAL: No abdominal pain, no constipation, no diarrhea, no nausea, no vomiting. GENITOURINARY: No abnormal discharge, no dysuria, no frequent urination, no hematuria. No complaints of pain in the genitals. MUSCULOSKELETAL: No back pain, no gout, no joint pain, no joint swelling, no muscle pain, no muscle stiffness, no neck pain. INTEGUMENTARY: No change in color, no change in hair/nails, no dryness, no le christiano, no lumps, no rash. NEUROLOGICAL/PSYCH: No anxiety, not depressed, no emotional problem, no headache, no numbness, no pre-existing deficit, no history of seizures, no tremors, no weakness. HEMATOLOGIC/LYMPHATIC: Not anemic, no history of blood clots, no apparent bleeding, no bruising, glands not swollen. All Systems Negative, Except as Noted. Physical Exam Physical Exam Dictation VITAL SIGNS: Reviewed. GENERAL APPEARANCE: Alert, oriented x3, no acute distress, obese. HEAD AND FACE: Non-traumatic. EYES: PERRL, pink conjunctivas, eyelid no trauma, anterior chamber clear. EARS: Pinnas intact and no signs of trauma or erythema. Ear canals clear and no discharge. TMs no erythema. NOSE: No discharge, no bleeding. OROPHARYNX: Mouth normal, teeth no caries, tongue pink. Pharynx clear, no erythema. Tonsils no exudates, no abscesses noted. Mucous membrane moist. NECK: Supple, non-tender, no thyromegaly, no masses, no JVD, no bruits. BREAST: Deferred. CHEST: No tenderness, no crepitus, no paradoxical movement, no retractions. LUNGS: Clear, well-ventilated, symmetric, no rales, no wheezing, no rhonchi, no stridor, good breath sounds bilaterally. HEART: Regular rate, regular rhythm, no murmur, no gallops. VASCULAR: No peripheral edema. ABDOMEN: Soft, positive bowel sounds, nondistended, no guarding, nontender, no rebound, no masses no hepatomegaly, no splenomegaly, no Brooks's sign, no hernias. RECTAL: Deferred. GENITAL: Deferred. NEUROLOGICAL: Normal speech, gross motor function intact, gross sensory function intact. MUSCULOSKELETAL: Neck nontender, full range of motion, back nontender, full range of motion. EXTREMITIES: Nontender, full range of motion. SKIN: Color pink, dry, no turgor, no rash, no lacerations, no abrasions, no contusions. LYMPHATICS: Deferred. Results Laboratory and Microbiology Lab and Micro Result Laboratory Tests Test 04/25/24 06:45 04/25/24 09:00 White Blood Count 7.3 K/uL (4.8-10.8) Red Blood Count 4.35 MIL/uL (4.00-5.50) Hemoglobin 12.7 g/dL (12.0-16.0) Hematocrit 37.9 % (36-48) Mean Corpuscular Volume 87.1 fL (79-99) Mean Corpuscular Hemoglobin 29.2 pg (27.0-33.0) Mean Corpuscular Hemoglobin Concent 33.5 g/dL (32.0-36.0) Red Cell Distribution Width 13.2 % (11.0-15.5) Platelet Count 324 K/uL (130-400) Mean Platelet Volume 9.2 fL (7.5-10.5) Immature Granulocyte % (Auto) 0.3 % (0-1) Neutrophils (%) (Auto) 40.1 % (40.0-77.0) Lymphocytes (%) (Auto) 49.7 % (21.0-51.0) Monocytes (%) (Auto) 7.1 % (3.0-13.0) Eosinophils (%) (Auto) 2.5 % (0.0-8.0) Basophils (%) (Auto) 0.3 % (0.0-5.0) Neutrophils # (Auto) 2.9 K/uL (1.8-7.7) Lymphocytes # (Auto) 3.6 K/uL (1.0-4.8) Monocytes # (Auto) 0.5 K/uL (0.1-1.0) Eosinophils # (Auto) 0.18 K/uL (0.00-0.70) Basophils # (Auto) 0.02 K/uL (0.00-0.20) Absolute Immature Granulocyte (auto 0.02 K/uL (0-1) Nucleated Red Blood Cells 0.0 % (0.0-0.19) Prothrombin Time 10.6 SEC (9.6-11.6) Prothromb Time International Ratio 1.00 (0.85-1.15) Activated Partial Thromboplast Time 29.6 SEC (26.3-35.5) Sodium Level 140 mmol/L (136-145) Potassium Level 3.6 mmol/L (3.5-5.1) Chloride Level 106 mmol/L (101-111) Carbon Dioxide Level 28 mmol/L (21-32) Blood Urea Nitrogen 15 mg/dL (7-18) Creatinine 0.6 mg/dL (0.5-1.0) Glomerular Filtration Rate Calc 101 mL/min (>90) Random Glucose 111 mg/dL (70-105) H Total Calcium 8.6 mg/dL (8.5-10.1) Magnesium Level 2.00 mg/dL (1.80-2.40) Total Creatine Kinase 38 U/L (21-232) Troponin I High Sensitivity < 4 ng/L (4-50) L 7 ng/L (4-50) B-Type Natriuretic Peptide 19 pg/mL (0-100) Labs Reviewed?: Yes EKG/XRAY/US/CT/MRI EKG Comment 04/25/2024 time 6:14 a.m. Ventricular rate 67 Sinus rhythm OR [address] wave elevation or depression MDM MDM: Differential diagnosis: Chest pain, angina Risk of complication and/or morbidity or mortality of patient management: None Medications-Per medication reconciliation Need for hospitalization: Patient does not meet criteria for hospitalization. Need for emergency major/minor surgery: No There are no social concerns with this patient. Prescription drug management Prescriptions will include symptomatic care I independently interpreted the test that were performed, results were reviewed by me and considered findings on radiology if ordered. ED Course Orders Procedure Category Date Status Time Cbc With Differential LAB 04/25/24 Complete 06:24 Prothrombin Time With LAB 04/25/24 Complete INR 06:24 B-Type Natriuretic LAB 04/25/24 Complete Peptide 06:24 Chest 1vw RAD 04/25/24 Taken 06:24 12 Lead Ekg Tracing- EKG 04/25/24 Complete Technical 06:24 Magnesium LAB 04/25/24 Complete 06:24 Creatine Kinase, Total LAB 04/25/24 Complete 06:24 Urinalysis Profile LAB 04/25/24 Logged 06:24 Partial LAB 04/25/24 Complete Thromboplastin Time 06:24 Bedside Troponin-I LAB.ER 04/25/24 In Process (Poc) 06:24 Basic Metabolic Panel LAB 04/25/24 Complete 06:24 Troponin I High LAB 04/25/24 Complete Sensitivity 06:24 Troponin I High LAB 04/25/24 Complete Sensitivity 08:43 Vital Signs Date Time Temp Pulse Resp B/P (MAP) Pulse Ox O2 Delivery O2 Flow Rate FiO2 04/25/24 09:04 97.9 59 16 109/68 98 Room Air* 0 21 04/25/24 06:26 98.8 80 18 156/75 99 Room Air* 0 21 04/25/24 06:22 97.5 87 16 150/90 98 Room Air 0 HEART Score Response (Comments) Value History: Low suspicion (0) 0 EKG: Normal 0 Age: 45-65yrs (+1) 1 Risk Factors: 1-2 risk factors (+1) 1 Initial Troponin: Normal limit (0) 0 HEART Score Risk: Low Risk for MACE (1-3) Total 2 DX & DISP Disposition: Discharge Departure Impression: Primary Impression: CHEST PAIN, UNSPECIFIED Condition: Stable Referrals: ORION VARGAS MD (PCP) MG MEADOWS MD Apr 25, 2024 06:30 TABITHA LOUIS MD Apr 25, 2024 11:07
[2024-04-25 06:52] LABS: BASOPHILS # (AUTO) 0.02 K/uL (0.00-0.20); BASOPHILS % (AUTO) 0.3 % (0.0-5.0); EOSINOPHILS # (AUTO) 0.18 K/uL (0.00-0.70); EOSINOPHILS % (AUTO) 2.5 % (0.0-8.0); HEMATOCRIT 37.9 % (36-48); IMMATURE GRANULOCYTE ABSOLUTE 0.02 K/uL (0-1); LYMPHOCYTES # (AUTO) 3.6 K/uL (1.0-4.8); LYMPHOCYTES % (AUTO) 49.7 % (21.0-51.0); MEAN CORPUSCULAR HEMOGLOBIN 29.2 pg (27.0-33.0); MEAN CORPUSCULAR HGB CONC 33.5 g/dL (32.0-36.0); MEAN CORPUSCULAR VOLUME 87.1 fL (79-99); MONOCYTES # (AUTO) 0.5 K/uL (0.1-1.0); MONOCYTES % (AUTO) 7.1 % (3.0-13.0); NEUTROPHILS # (AUTO) 2.9 K/uL (1.8-7.7); NEUTROPHILS % (AUTO) 40.1 % (40.0-77.0); PLATELET COUNT (AUTO) 324 K/uL (130-400); RED BLOOD CELL COUNT(AUTO) 4.35 MIL/uL (4.00-5.50); RED CELL DISTRIBUTION WIDTH 13.2 % (11.0-15.5); WHITE BLOOD COUNT (AUTO) 7.3 K/uL (4.8-10.8)
--- NOTE | 2024-04-25 06:57 | EKG ---
[facility] Test Date: 2024-04-25 Test Time: 06:14:43 Pat Name: MARISOL ANDERSON Department: [facility] Room: Gender: F [employer] Director: [id number] : 1960 Requested By: MG MEADOWS Order Number: [id number] Reading MD: Krishna Noriega Measurements Intervals [place] Rate: 67 P: 22 ID: [id number] QRS: -6 QRSD: 94 T: 39 QT: 428 QTc: 453 Interpretive Statements Sinus rhythm Compared to ECG 04/07/2024 04:59:53 Sinus arrhythmia no longer present Electronically Signed On 04-26-2024 07:37:32 ENVIRONMENTAL AIDE by Krishna Noriega Please click the below link to view image of tracing.
[2024-04-25 07:07] LABS: PROTHROMBIN TIME 10.6 SEC (9.6-11.6)
[2024-04-25 07:08] LABS: CREATININE 0.6 mg/dL (0.5-1.0); PARTIAL THROMBOPLASTIN TIME 29.6 SEC (26.3-35.5); POTASSIUM 3.6 mmol/L (3.5-5.1)
[2024-04-25 07:10] LABS: B-TYPE NATRIURETIC PEPTIDE 19 pg/mL (0-100)
[2024-04-25 11:20] VITALS: BP 137/79; PULSE 67; RESP 16; TEMP 97.8; O2SAT 99
--- NOTE | 2024-04-25 11:39 | HMCIMG ---
CHEST 1VW HISTORY: Chest pain COMPARISON: 03/17/2024 FINDINGS: A frontal projection of the chest was obtained. No acute pulmonary infiltrates is seen. The heart is normal in size. Prominent interstitial markings are seen. Degenerative changes are seen. IMPRESSION: 1. No acute pulmonary infiltrate is seen.
== END 2024-04-25 11:30 | disposition home or self-care (01) ==
LOC: EDH 06:20
DX: R07.89 Other chest pain (principal); F41.9 Anxiety disorder, unspecified; I10 Essential (primary) hypertension; Z88.5 Allergy status to narcotic agent; Z90.710 Acquired absence of both cervix and uterus
CPT/HCPCS: 36415; 71045; 80048; 82550; 83735; 83880; 84484; 85025; 85610; 85730; 93005; 99285

== ENCOUNTER → 2024-05-05 | Outpatient (CLI) | payer OTHER ==
--- NOTE | 2024-05-08 08:09 | HMCSR ---
APPROVED REPORT EXAM: Two-dimensional and M-mode echocardiogram with Doppler and color Doppler. INDICATION ICD: Shortness of breath R06.02 2D Dimensions RVDd2.9 cmLVEF(%)56.1 (>50%)LVED Vol(simp.)77.0 mL IVSd0.8 (0.7-1.1cm)FS(%)29 %LVES Vol(simp.)29.0 mL LVDd4.5 (3.8-5.6cm)LA (2D)3.9 (1.6-4.0cm)LVEF(%, simp.)62 % PWd0.8 (0.7-1.1cm)Ao Root(2D)2.7 (2.0-3.7cm)LA ESV INDEX (BP)30.02 mL/m2 LVDs3.2 (2.5-4.0cm)LVOT diam1.9 (1.8-2.4cm) Aortic Valve AoV Vmax1.4 m/George Peak GR7.6 mmHgLVOT Vmax1.3 m/s AoV VTI0.3 mAo Mean GR3.9 mmHgLVOT VTI0.31 m HANNAH (VMAX)2.9 cm2AVA (VTI) 2.9 cm2 Mitral Valve MV E Vmax82.8 cm/sDECEL Zsqs262 ms MV A Vmax60.9 cm/s E/A ratio1.4 MR Max PG49 mmHg TDI E/E' Mqxorg46.6E/E' Lateral8.1 Pulmonary Valve PV Vmax0.5 m/sPV VTI0.13 mPV Mean GR1 mmHg PV Peak GR1.1 mmHg Tricuspid Valve TR Vmax2.2 m/sRAP (EST) 8 wpCjVACY64.0 mmHg TR Peak GR19.0 mmHg Left Ventricle Left ventricular cavity size is normal. There is normal LV segmental wall motion. There is normal lef t ventricular wall thickness. LVEF is 55-60%. Left ventricular filling pattern is normal for age. Right Ventricle The right ventricle is normal size. The right ventricular systolic function is normal. Atria The left atrium size is normal. The right atrium size is normal. Aortic Valve Aortic valve is trileaflet. Aortic valve leaflets are sclerotic but open well. No aortic regurgitatio n is present. There is no aortic valvular stenosis. Mitral Valve Mitral valve leaflets are sclerotic but open well. Mitral regurgitation is trace. There is no mitral valve stenosis. Tricuspid Valve The tricuspid valve leaflets appear normal. There is mild tricuspid regurgitation. Pulmonic Valve The pulmonic valve leaflets appears normal. There is trace pulmonic valvular regurgitation. Great Vessels The aortic root is normal in size. IVC is not well visualized. Pericardium No pericardial effusion. Conclusion LVEF is 55-60%. Mitral regurgitation is trace. There is mild tricuspid regurgitation.
== END | disposition home or self-care (01) ==
LOC: SHCH 12:25
PROVIDERS: ATTEND Internal Medicine Cardiovascular Disease
DX: I08.3 Combined rheumatic disorders of mitral, aortic and tricuspid valves (principal); R06.02 Shortness of breath
CPT/HCPCS: 93306

== ENCOUNTER → 2024-05-25 | Outpatient (CLI) | payer OTHER ==
[2024-05-25 16:38] LABS: CREATININE 0.8 mg/dL (0.5-1.0); POTASSIUM 4.4 mmol/L (3.5-5.1)
== END | disposition home or self-care (01) ==
LOC: LAB 13:05
PROVIDERS: ATTEND Internal Medicine Cardiovascular Disease
DX: I10 Essential (primary) hypertension (principal)
CPT/HCPCS: 36415; 80048; 83735

== ENCOUNTER 2024-05-31 21:06 | Emergency (ER) | payer OTHER ==
[~2024-05-31] VITALS: Ht 157.5 cm; Wt 67.1 kg
--- NOTE | 2024-05-31 21:36 | ERN ---
General Chief Complaint: Chest Pain Stated Complaint: C/O CP WITH DIZZINESS, NAUSEA, PAIN TO LEFT ARM Time Seen by MD: 21:22 Source: patient History of Present Illness Initial Comments A 3-year-old female with hypertension felt lightheaded yesterday and today with the associated nausea and now left chest pain and left arm pain. Her blood pressure is 155 systolic. She does see a nurses' association counselor. Allergies: Coded Allergies: morphine (Unverified Allergy, Unknown, 12/27/21) Home Meds Active Scripts Ibuprofen (Ibuprofen) 600 Mg Tablet, 600 MG PO q8 hoursPRN PRN for PAIN, #12 TAB 0 Refills Prov:LACEY QUESADA NP 01/27/23 Polyethylene Glycol 1000 (Polyethylene Glycol) 500 Gm Powder, 500 GM MC DAILY, #15 APPL Prov:CECE HEWITT MD 01/18/23 Sennosides/Docusate Sodium (Senna-Docusate Sodium Tablet) 8.6 Mg-50 Mg Tablet, 1 EACH PO DAILY, #30 TAB Prov:CECE HEWITT MD 01/18/23 Nitrofurantoin/Nitrofuran Mac (Macrobid) 100 Mg Cap, 1 CAP PO BID for uti for 7 Days, #14 CAP 0 Refills Prov:JULIUS TRIPP 12/27/21 Meclizine HCl (Meclizine HCl) 12.5 Mg Tablet, 12.5 MG PO QID for DIZZINESS for 30 Days, #30 TAB Prov:JULIUS TRIPP 12/27/21 Past Medical History Past Medical History: Anxiety, Depression, High Cholesterol, Hypertension, Other Medical History Other: HX OF INSOMNIA Past Surgical History: Hysterectomy Social History Social History: Negative Female( History) History: Not Applicable ROS Dictation Review of systems is negative beyond what is in the HPI. She has no fever she has no mental status changes no changes to her vision. No coughing no sneezing no upper respiratory tract infection no shortness of breath. Just the chest pain on her left chest. No abdominal symptoms no vomiting no nausea no diarrhea. She moves all her extremities has no peripheral neuropathies or circulation problems. Physical Exam General Appearance: (+) no apparent distress Orientation: (+) oriented x 3 Head/Face Trauma: No Eye: bilateral eye normal inspection, bilateral eye PERRL, bilateral eye EOMI Ear, Nose, Throat: (+) hearing grossly normal, (+) normal ENT inspection Neck: (+) normal inspection, (+) supple Respiratory: (+) chest non-tender, (+) lungs clear, (+) well ventilated Heart: (+) regular, (+) no gallop Vascular: (+) no edema, (+) normal peripheral pulse, (+) no JVD Gastrointestinal: (+) soft, (+) non-tender, (+) no organomegaly Results Laboratory and Microbiology Lab and Micro Result Laboratory Tests Test 05/31/24 21:37 05/31/24 21:51 Urine Color COLORLESS (YELLOW) Urine Appearance CLEAR (CLEAR) Urine pH 5.5 (5.0-8.0) Urine Specific [place] 1.010 (1.001-1.031) Urine Protein NEGATIVE mg/dL (NEGATIVE) Urine Glucose (UA) NEGATIVE mg/dL (NEGATIVE) Urine Ketones NEGATIVE mg/dL (NEGATIVE) Urine Occult Blood NEGATIVE (NEGATIVE) Urine Nitrate NEGATIVE (NEGATIVE) Urine Bilirubin NEGATIVE mg/dL (NEGATIVE) Urine Urobilinogen 0.2 mg/dL (0.2-1.0) Urine Leukocyte Esterase 25 Kiersten/uL (NEGATIVE) H Urine RBC 0-1 /HPF (0-1) Urine WBC 2-5 /HPF (0-1) H Urine Bacteria None /HPF (None Seen) White Blood Count 8.1 K/uL (4.8-10.8) Red Blood Count 4.26 MIL/uL (4.00-5.50) Hemoglobin 12.5 g/dL (12.0-16.0) Hematocrit 37.6 % (36-48) Mean Corpuscular Volume 88.3 fL (79-99) Mean Corpuscular Hemoglobin 29.3 pg (27.0-33.0) Mean Corpuscular Hemoglobin Concent 33.2 g/dL (32.0-36.0) Red Cell Distribution Width 13.2 % (11.0-15.5) Platelet Count 346 K/uL (130-400) Mean Platelet Volume 8.8 fL (7.5-10.5) Immature Granulocyte % (Auto) 0.2 % (0-1) Neutrophils (%) (Auto) 55.7 % (40.0-77.0) Lymphocytes (%) (Auto) 34.5 % (21.0-51.0) Monocytes (%) (Auto) 7.2 % (3.0-13.0) Eosinophils (%) (Auto) 2.0 % (0.0-8.0) Basophils (%) (Auto) 0.4 % (0.0-5.0) Neutrophils # (Auto) 4.5 K/uL (1.8-7.7) Lymphocytes # (Auto) 2.8 K/uL (1.0-4.8) Monocytes # (Auto) 0.6 K/uL (0.1-1.0) Eosinophils # (Auto) 0.16 K/uL (0.00-0.70) Basophils # (Auto) 0.03 K/uL (0.00-0.20) Absolute Immature Granulocyte (auto 0.02 K/uL (0-1) Nucleated Red Blood Cells 0.0 % (0.0-0.19) Sodium Level 142 mmol/L (136-145) Potassium Level 3.8 mmol/L (3.5-5.1) Chloride Level 103 mmol/L (101-111) Carbon Dioxide Level 30 mmol/L (21-32) Blood Urea Nitrogen 17 mg/dL (7-18) Creatinine 0.7 mg/dL (0.5-1.0) Glomerular Filtration Rate Calc 97 mL/min (>90) Random Glucose 93 mg/dL (70-105) Total Calcium 9.3 mg/dL (8.5-10.1) Troponin I High Sensitivity < 4 ng/L (4-50) L B-Type Natriuretic Peptide 17 pg/mL (0-100) MDM Patient does have chest pain radiating to her left arm with associated symptoms of nausea and lightheadedness. An EKG shows no ST elevations. I will order troponins give her some fluid and check a chemistry panel. A UA as well. I have no signs or symptoms of infection so I will not get a CBC at this point. BNP also sent. All the patient's lab work is normal. Normal CBC normal chest x-ray normal UA normal BNP and normal troponin. I communicated this to the patient she would like to go home. ED Course Orders Procedure Category Date Status Time 12 Lead Ekg Tracing- EKG 05/31/24 Logged Technical 21:17 Vital Signs Per CPOE 05/31/24 Transmitted Routine 21:33 B-Type Natriuretic LAB 05/31/24 Complete Peptide 21:33 Chest 1vw RAD 05/31/24 Resulted 21:33 12 Lead Ekg Tracing- EKG 05/31/24 Logged Technical 21:33 Oxygen By Nc/Pulse Ox CPOE 05/31/24 Transmitted 21:33 Maintain Iv CPOE 05/31/24 Transmitted 21:33 Iv Insertion CPOE 05/31/24 Transmitted 21:33 Cardiac Monitoring CPOE 05/31/24 Transmitted 21:33 Pulse Oximetry With CPOE 05/31/24 Transmitted Vs And Prn 21:33 Cbc With Differential LAB 05/31/24 Complete 21:33 Activity: Br W/Brp CPOE 05/31/24 Transmitted With Assist 21:33 Troponin I High LAB 05/31/24 Complete Sensitivity 21:33 Urinalysis Profile LAB 05/31/24 Complete 21:33 Basic Metabolic Panel LAB 05/31/24 Complete 21:33 Aspirin 325mg Ec Tab PHA 05/31/24 Complete (Aspirin 325mg Ec T 22:30 Current Medications Medications (Trade) Dose Ordered Sig/Sade Route PRN Reason Start Time Stop Time Status Last Admin Dose Admin Aspirin (Aspirin 325mg Ec Tab) 325 mg ONCE ONCE PO 05/31/24 22:30 05/31/24 22:31 DC 05/31/24 22:22 Vital Signs Date Time Temp Pulse Resp B/P (MAP) Pulse Ox O2 Delivery O2 Flow Rate FiO2 05/31/24 22:12 97.9 64 16 138/80 98 Room Air* 0 05/31/24 21:29 98.1 84 18 132/81 98 Room Air* 0 05/31/24 21:09 96.6 80 20 155/94 98 Room Air DX & DISP Disposition: Discharge Departure Impression: Primary Impression: Non-cardiac chest pain Condition: Stable Referrals: ORION VARGAS MD (PCP) SARA IZQUIERDO MD May 31, 2024 21:36
[2024-05-31 21:48] LABS: APPEARANCE,URINE CLEAR (CLEAR); BILIRUBIN,URINE NEGATIVE (NEGATIVE); COLOR,URINE COLORLESS (YELLOW); GLUCOSE, URINE (UA) NEGATIVE (NEGATIVE); KETONES,URINE NEGATIVE (NEGATIVE); LEUKOCYTE ESTERASE ,URINE 25 Leu/uL (NEGATIVE); NITRATE,URINE NEGATIVE (NEGATIVE); OCCULT BLOOD,URINE NEGATIVE (NEGATIVE); PH,URINE 5.5 (5.0-8.0); PROTEIN,URINE NEGATIVE (NEGATIVE); UROBILINOGEN,URINE 0.2 mg/dL (0.2-1.0)
[2024-05-31 21:52] LABS: ADD UA MICROSCOPIC YES
[2024-05-31 21:56] LABS: MUCUS,URINE RARE LPF (None Seen); RBC,URINE 0-1 /HPF (0-1)
[2024-05-31 21:59] LABS: BASOPHILS # (AUTO) 0.03 K/uL (0.00-0.20); BASOPHILS % (AUTO) 0.4 % (0.0-5.0); EOSINOPHILS # (AUTO) 0.16 K/uL (0.00-0.70); HEMATOCRIT 37.6 % (36-48); IMMATURE GRANULOCYTE ABSOLUTE 0.02 K/uL (0-1); LYMPHOCYTES # (AUTO) 2.8 K/uL (1.0-4.8); LYMPHOCYTES % (AUTO) 34.5 % (21.0-51.0); MEAN CORPUSCULAR HEMOGLOBIN 29.3 pg (27.0-33.0); MEAN CORPUSCULAR HGB CONC 33.2 g/dL (32.0-36.0); MEAN CORPUSCULAR VOLUME 88.3 fL (79-99); MONOCYTES # (AUTO) 0.6 K/uL (0.1-1.0); MONOCYTES % (AUTO) 7.2 % (3.0-13.0); NEUTROPHILS # (AUTO) 4.5 K/uL (1.8-7.7); NEUTROPHILS % (AUTO) 55.7 % (40.0-77.0); PLATELET COUNT (AUTO) 346 K/uL (130-400); RED BLOOD CELL COUNT(AUTO) 4.26 MIL/uL (4.00-5.50); RED CELL DISTRIBUTION WIDTH 13.2 % (11.0-15.5); WHITE BLOOD COUNT (AUTO) 8.1 K/uL (4.8-10.8)
[2024-05-31 22:05] LABS: CREATININE 0.7 mg/dL (0.5-1.0); POTASSIUM 3.8 mmol/L (3.5-5.1)
[2024-05-31 22:15] LABS: B-TYPE NATRIURETIC PEPTIDE 17 pg/mL (0-100)
[2024-05-31] MEDS: ASPIRIN 325MG EC TAB PO ONE (22:22)
--- NOTE | 2024-05-31 22:26 | HMCIMG ---
CHEST 1VW HISTORY: Chest pain COMPARISON: 04/25/2024 FINDINGS: A frontal projection of the chest was obtained. No acute pulmonary infiltrates is seen. The heart is normal in size. Prominent interstitial markings are seen. Degenerative changes are seen. IMPRESSION: 1. No acute pulmonary infiltrate is seen.
[2024-05-31 23:15] VITALS: BP 134/77; PULSE 68; RESP 18; TEMP 97.9; O2SAT 98
--- NOTE | 2024-06-01 06:41 | EKG ---
[facility] Test Date: 2024-05-31 Test Time: 21:13:03 Pat Name: MARISOL ANDERSON Department: ED Room: Gender: Female Sexual Assault Counselor: [phone] : 1960 Requested By: SARA IZQUIERDO Order Number: [id number] Reading MD: Measurements Intervals [place] Rate: 78 P: 30 ID: [id number] QRS: 1 QRSD: 84 T: 31 QT: 379 QTc: 430 Interpretive Statements Sinus rhythm Low voltage, precordial leads No previous ECG available for comparison Please click the below link to view image of tracing.
== END 2024-05-31 23:17 | disposition home or self-care (01) ==
LOC: EDH 21:06
DX: R07.89 Other chest pain (principal); E78.00 Pure hypercholesterolemia, unspecified; I10 Essential (primary) hypertension; F41.9 Anxiety disorder, unspecified; F32.A Depression, unspecified; Z88.5 Allergy status to narcotic agent; Z90.710 Acquired absence of both cervix and uterus
CPT/HCPCS: 36415; 71045; 80048; 81001; 83880; 84484; 85025; 93005; 99285